=== PATIENT | male | born 1930 | race Caucasian/White ===

== ENCOUNTER 2017-09-09 15:55 | Emergency (ER) | payer OTHER ==
[~2017-09-09] VITALS: Ht 172.7 cm; Wt 77.1 kg
[~2017-09-09 15:55] MED LIST: AMOXICILLIN875 MG PO; AUGMENTIN 875875 MG PO; LIPITOR; NORCO 5-325 TA1 EACH PO; VASOTEC20 MG PO; ZANTAC; ZOLOFT PO
== END 2017-09-09 20:47 ==
LOC: ER 15:55
DX: I46.9 Cardiac arrest, cause unspecified (principal); I10 Essential (primary) hypertension